=== PATIENT | female | born 1950 | race Caucasian/White ===

== ENCOUNTER → 2018-02-14 | Outpatient (CLI) | payer OTHER ==
[2018-02-14 17:10] LABS: CSF PROTEIN 54 mg/dL (15-45); GLUCOSE, CSF 56 mg/dL (40-80)
[2018-02-14 17:13] LABS: APPEARANCE CLEAR/COLORLESS; CSF TUBE NUMBER TUBE #4
[2018-02-14 17:15] LABS: RED CELL COUNT 145 /MM^3 (0-1); WHITE CELL COUNT 5 /MM^3 (0-5)
[2018-02-14 17:45] LABS: APPEARANCE (RECHECK) CLEAR/COLORLESS; CSF TUBE NUMBER (RECHECK) TUBE #1; RED CELL COUNT (RECHECK) 150 /MM^3 (0-1)
[2018-02-14 18:21] LABS: CSF EOSINOPHILS 0 % (0-25); MONONUCLEAR WBC'S 95 % (50-90); POLYNUCLEAR WBC'S 5 % (0-3)
[2018-02-14 18:37] LABS: FOLIC ACID (FOLATE) 5.5 NG/ML (5.0-22.0)
[2018-02-15 10:58] LABS: TREPONEMA ANTIBODY NEGATIVE (NEGATIVE)
[2018-02-15 13:02] LABS: HSV CSF Spec Source CSF (())
[2018-02-15 14:07] LABS: VARICELLA-ZOSTER VIRUS PCR+ <500 (<500)
== END | disposition home or self-care (01) ==
LOC: RAD 14:43
PROVIDERS: Physician Assistant
PROC: 009U3ZZ Drainage of Spinal Canal, Percutaneous Approach (ICD-10-PCS; principal; 2018-02-14)
DX: R93.0 Abnormal findings on diagnostic imaging of skull and head, not elsewhere classified (principal)
CPT/HCPCS: 36415; 62270; 77003; 82040 90; 82042 90; 82164 90; 82607; 82746; 82784 90; 82945; 83916 90; 84157; 84443; 85651; 86038; 86592 90; 86617 90; 86618 90; 86780; 87070; 87205; 87529 90; 87799 90; 89051